=== PATIENT | male | born 1965 | race Hispanic/Latino ===

== ENCOUNTER → 2023-03-02 | Outpatient (CLI) | payer OTHER | END | disposition home or self-care (01) | LOC: RAH 14:30 → EEVIPCON 15:00 | PROVIDERS: ATTEND Family Medicine | DX: K40.90 Unilateral inguinal hernia, without obstruction or gangrene, not specified as recurrent (principal); R22.41 Localized swelling, mass and lump, right lower limb | CPT/HCPCS: 76882 ==